=== PATIENT | male | born 1985 | race Two or more races ===

== ENCOUNTER 2017-07-17 23:40 | Emergency (ER) | payer SELFPAY ==
[~2017-07-17] VITALS: Ht 172.7 cm; Wt 73.6 kg
[~2017-07-17 23:40] MED LIST: CEFD250S3 PO; CIPR500T4 PO; CIPR7.5D4 LEFT EAR; DICL25TA11 PO; GUAI118L94 PO; IBUP-1542 PO; IBUP800T25 PO; LORA-186 PO; OSLT75C PO
[2017-07-18 00:35] VITALS: Ht 172.7 cm; Wt 73.6 kg
== END 2017-07-18 04:20 | disposition left against medical advice (07) ==
LOC: FTE 23:40
DX: Z53.21 Procedure and treatment not carried out due to patient leaving prior to being seen by health care provider (principal)